=== PATIENT | male | born 1980 | race African-American/Black ===

== ENCOUNTER 2019-08-29 21:01 | Emergency (ER) | payer OTHER ==
[2019-08-29] MEDS ORDERED: KETOROLAC 30 MG/ML 1 ML VIAL IVP STA (21:33)
[2019-08-29] MEDS ORDERED: diphenhydrAMINE 50 MG/ML 1 ML VIAL IVP STA (21:33)
[2019-08-29] MEDS ORDERED: SODIUM CHLORIDE 0.9% 1,000 ML IV STA (21:33)
[2019-08-29] MEDS ORDERED: ONDANSETRON 4 MG/2 ML VIAL IVP STA (21:33)
--- NOTE | 2019-08-29 21:35 | ED ---
General Adult HPI - General Chief complaint: Headache Stated complaint: BANGURA Time Seen by Provider: 08/29/19 21:15 Source: patient Mode of arrival: ambulatory Limitations: no limitations - History of Present Illness Initial comments: Dictation was produced using [employer] dictation software. please excuse any grammatical, word or spelling errors. Chief Complaint: 39-year-old male presents with headache History of Present Illness: 89-year-old male presents with chief complaint of headache. Patient had this headache for 5 days. Patient states he has a history of migraines. He reports that his symptoms are different. 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 He states a lot of people at work have been having flulike symptoms. Patient states that her symptoms began in his nose. He reports that at scan of like a burning sensation. Then reports that his symptoms started to affect his right eye and the right side of his face. Patient does have rhinorrhea. He states his headache is worse when tilting his head forward. Patient reports that his headache is severe but is not the worst headache of his life. Denies any neck stiffness. No focal neurologic deficits. Does report sensitivity light. The ROS documented in this emergency department record has been reviewed and confirmed by me. Those systems with pertinent positive or negative responses have been documented in the HPI. All other systems are other negative and/or n oncontributory. PHYSICAL EXAM: General Impression: Alert and oriented x3, acute distress secondary to pain HEENT: Normocephalic atraumatic, extra-ocular movements intact, pupils equal and reactive to light bilaterally, mucous membranes moist. Cardiovascular: Heart regular rate and rhythm, S1&S2 audible, no murmurs, rubs or gallops Chest: Lungs clear to auscultation bilaterally, no rhonchi, no wheeze, no rales Abdomen: Bowel sounds present, abdomen soft, non-tender, non-distended, no organomegaly Musculoskeletal: Pulses present and equal in all extremities, no peripheral edema Motor: no focal deficits noted Neurological: CN II-XII grossly intact, no focal motor or sensory deficits noted Skin: Intact with no visualized rashes Psych: Normal affect and mood ED course: 39 yo Old male chief complaint of headache. On arrival are within acceptable limits. Clinical presentation not consistent with subarachnoid bleed. Laboratory evaluation obtained found to be unremarkable. Patient given headache cocktail and reevaluated with slight improvement of symptoms however he still symptomatic. Patient given magnesium and Decadron and observed in emergency department for another couple hours. Patient does report improvement of his headache. Given patient's symptomatology no concern for life-threatening cause of headache at this time. He is well-appearing at this time is no focal neurol ogic deficits. no clinical presentation consistent with subarachnoid bleed, encephalitis or meningitis.Laboratory evaluation obtained found to be unremarkable. Patient given headache cocktail and reevaluated with slight improvement of symptoms however he still symptomatic. Patient given magnesium and Decadron and observed in emergency department for another couple hours. Patient does report improvement of his headache. Given patient's symptomatology no concern for life-threatening cause of headache at this time. He is well- appearing at this time is no focal neurologic deficits. referral given to PCP and neurology. return parameters discussed. clear for discharge. all questions answered. - Related Data Allergies Allergy/AdvReac Type Severity Reaction Status Date / Time No Known Allergies Allergy Verified 08/29/19 21:13 Review of Systems ROS Statement: Those systems with pertinent positive or pertinent negative responses have been documented in the HPI. ROS Other: All systems not noted in ROS Statement are negative. Past Medical History Additional Past Medical History / Comment(s): migraines History of Any Multi-Drug Resistant Organisms: None Reported Past Surgical History: No Surgical Hx Reported Past Psychological History: No Psychological Hx Reported Smoking Status: Current every day smoker Past Alcohol Use History: Occasional Past Drug Use History: None Reported General Exam Limitations: no limitations Course Vital Signs 08/29/19 21:09 Temperature 98.4 F Pulse Rate 93 Respiratory 20 Rate Blood Pressure 151/89 O2 Sat by Pulse 99 Oximetry Medical Decision Making - Lab Data Result diagrams: 08/29/19 21:35 08/29/19 21:35 Lab Results 08/29/19 08/29/19 Range/Units 21:35 21:35 WBC 6.7 (3.8-10.6) k/uL RBC 5.02 (4.30-5.90) m/uL Hgb 15.4 (13.0-17.5) gm/dL Hct 46.6 (39.0-53.0) % MCV 92.9 (80.0-100.0) fL MCH 30.6 (25.0-35.0) pg MCHC 32.9 (31.0-37.0) g/dL RDW 13.4 (11.5-15.5) % Plt Count 247 (150-450) k/uL Neutrophils % 52 % Lymphocytes % 36 % Monocytes % 5 % Eosinophils % 3 % Basophils % 2 % Neutrophils # 3.5 (1.3-7.7) k/uL Lymphocytes # 2.4 (1.0-4.8) k/uL Monocytes # 0.4 (0-1.0) k/uL Eosinophils # 0.2 (0-0.7) k/uL Basophils # 0.1 (0-0.2) k/uL Sodium 143 (137-145) mmol/L Potassium 4.0 (3.5-5.1) mmol/L Chloride 106 (98-107) mmol/L Carbon Dioxide 28 (22-30) mmol/L Anion Gap 9 mmol/L BUN 22 H (9-20) mg/dL Creatinine 1.26 H (0.66-1.25) mg/dL Est GFR (CKD-EPI)AfAm 83 (>60 ml/min/1.73 sqM) Est GFR (CKD-EPI)NonAf 71 (>60 ml/min/1.73 sqM) Glucose 99 (74-99) mg/dL Calcium 9.7 (8.4-10.2) mg/dL Disposition Clinical Impression: Headache Disposition: HOME SELF-CARE Condition: Good Instructions (If sedation given, give patient instructions): Acute Headache (ED) Is patient prescribed a controlled substance at d/c from ED?: No Referrals: Helene Guerin MD [Medical Doctor] - 1-2 days Anirudh Purdy MD [REFERRING] - 1-2 days Time of Disposition: 00:09
[2019-08-29 21:53] LABS: Basophils # (A) 0.1 k/uL (0-0.2); Basophils % (A) 2 %; Eosinophils # (A) 0.2 k/uL (0-0.7); Eosinophils % (A) 3 %; HCT 46.6 % (39.0-53.0); HGB 15.4 gm/dL (13.0-17.5); Lymphocytes # (A) 2.4 k/uL (1.0-4.8); Lymphocytes % (A) 36 %; MCH 30.6 pg (25.0-35.0); MCHC 32.9 g/dL (31.0-37.0); MCV 92.9 fL (80.0-100.0); Mean Platelet Volume 6.8; Monocytes # (A) 0.4 k/uL (0-1.0); Monocytes % (A) 5 %; Neutrophils # (A) 3.5 k/uL (1.3-7.7); Neutrophils % (A) 52 %; Platelet Count 247 k/uL (150-450); RBC 5.02 m/uL (4.30-5.90); RDW 13.4 % (11.5-15.5); WBC 6.7 k/uL (3.8-10.6)
[2019-08-29 22:01] LABS: Calcium 9.7 mg/dL (8.4-10.2)
--- NOTE | 2019-08-29 22:10 | CT ---
EXAMINATION TYPE: CT brain wo con DATE OF EXAM: 08/29/2019 COMPARISON: None HISTORY: Headache x5-[address] DLP: 1098.4 mGycm Automated exposure control for dose reduction was used. Ventricles have normal size. There is no mass effect nor midline shift. There is no sign of intracran ial hemorrhage. The calvarium is intact. There is no evidence of cerebral edema. IMPRESSION: Negative unenhanced head CT scan.
[2019-08-29] MEDS ORDERED: DEXAMETHASONE SOD PHOSPHATE 10 MG/ML 1 ML VIAL IV STA (22:41)
[2019-08-29] MEDS ORDERED: MAGNESIUM SULFATE-D5W PMX 1 GM in DEXTROSE/WATER 1 100ML.BAG IVPB SCH (22:45)
[2019-08-30 00:17] VITALS: BP 146/74; PULSE 83; RESP 16; TEMP 98.2
== END 2019-08-30 00:09 | disposition home or self-care (01) ==
LOC: EC 21:01
DX: R51 Headache (principal); J34.89 Other specified disorders of nose and nasal sinuses; H53.149 Visual discomfort, unspecified; F17.200 Nicotine dependence, unspecified, uncomplicated; Z86.69 Personal history of other diseases of the nervous system and sense organs
CPT/HCPCS: 36415; 80048; 85025; 70450; 99284; 96365; 96375 ×4; 96361; J1200; J1100; J2405; J1885; J3475